=== PATIENT | female | born 1965 | race Caucasian/White ===

== ENCOUNTER 2020-11-22 06:46 | Observation (INO) ==
--- NOTE | 2020-11-02 09:47 | PAT Medication Instructions ---
Medication Instructions Date of Service November 02, 2020 Home Medications Medication Instructions Recorded Wheeled Walker #1 ea 10/19/20 Vitamin D 1 tab PO QAM ascorbic acid (vitamin C) [Vitamin C] 1 g PO BID calcium-magnesium [Calcium And Magnesium] 2 tab PO BID multivitamin 1 tab PO QAM naproxen sodium [Aleve] 440 mg PO BID PRN ASK your surgeon for instructions naproxen sodium [Aleve] 440 mg PO BID PRN DO NOT take the morning of surgery Vitamin D 1 tab PO QAM ascorbic acid (vitamin C) [Vitamin C] 1 g PO BID calcium-magnesium [Calcium And Magnesium] 2 tab PO BID multivitamin 1 tab PO QAM Other Notes If you have any questions please call us at [phone] or [phone] or [phone] or [phone]
--- NOTE | 2020-11-06 10:12 | Anesthesiology Consultation ---
Date of Service November 06, 2020 Assessment & Plan (1) Encounter for pre-operative examination: - Per assessment on 11/06: Travel screen- Lives in [place]. Works in [employer]. No known COVID-19 positive contacts or current COVID-19 related symp toms. Surgeon arranging preop COVID testing. Awaiting results. - Check test AM DOS - Hx PONV: Patient had had severe PONV with multiple previous surgeries. Will order scope patch for AM DOS. Chart Review Chart Review: Acceptable Risk for Surgery and Patient seen in Pre Admission Testing Teaching & Discussion Pre-Anesthesia Teaching/Discussion Notes: Instructed NPO after midnight before surgery,except medications with 15 cc of water. Medication instructions provided according to the PAT guidelines. History Surgery Operation Date: 11/22/20 09:05 Proposed Procedures p Left Total Knee Arthroplasty - Wayne Acuna MD Height/Weight Height: 5 ft 7 in Weight: 78.8 kg Allergies Allergy/AdvReac Type Severity Reaction Status Date / Time Bactrim Allergy Intermediate rash Verified 09/23/13 10:22 sulfamethoxazole Allergy Intermediate rash Verified 10/24/20 13:42 trimethoprim Allergy Intermediate rash Verified 10/24/20 13:42 Sulfa (Sulfonamide Allergy Mild rash Verified 11/02/20 13:49 Antibiotics) Medications Home Medications Medication Instructions Recorded Confirmed Last Taken Wheeled Walker #1 ea 10/19/20 10/19/20 Unknown Vitamin D 1 tab PO QAM 10/24/20 10/24/20 Unknown ascorbic acid (vitamin C) [Vitamin 1 g PO BID 10/24/20 10/24/20 Unknown C] calcium-magnesium [Calcium And 2 tab PO BID 10/24/20 10/24/20 Unknown Magnesium] multivitamin 1 tab PO QAM 10/24/20 10/24/20 Unknown naproxen sodium [Aleve] 440 mg PO BID PRN 10/24/20 10/24/20 Unknown 5-HTP 1 tab PO QPM 11/06/20 11/06/20 Unknown Allergy Relief Medicine 180 mg PO DAILY 11/06/20 11/06/20 Unknown B [place] 1 tab PO BID 11/06/20 Unknown Curcumin 1 tab PO QAM 11/06/20 11/06/20 Unknown DL-Phenylalanine DAILY 11/06/20 Unknown K+2 Potassium 1 tab PO BID 11/06/20 Unknown Liposomal/Vit D [place] 1 pump TID 11/06/20 Unknown Metabolic Synergy (Multi) 1 tab PO BID 11/06/20 Unknown P5p DAILY 11/06/20 Unknown Probiotic 1 tab PO QPM 11/06/20 11/06/20 Unknown Vitamin C 600 mg PO BID 11/06/20 11/06/20 Unknown iodine BID 11/06/20 Unknown krill oil 1 tab PO QAM 11/06/20 11/06/20 Unknown melatonin 3 mg PO HS 11/06/20 11/06/20 Unknown tyrosine [L-Tyrosine] 500 mg PO QAM 11/06/20 11/06/20 Unknown Past Medical History Medical History CMC arthritis DJD (degenerative joint disease) GERD (gastroesophageal reflux disease) occasional Exercise / Class Metabolic Activity II 4-5 Yardwork/Stairs/Walk up hill Past Family History Family History Grandmother Heart disease Mother Diabetes Uncle Family hx of colon cancer Other Depression Past Surgical History Surgical History H/O hand surgery Left thumb History of endometrial ablation Status post right partial knee replacement Past Anesthesia History No Hx of Anesthesia Complications (except PONV) and No Family Hx of Anesthesia Complications History of PONV History of PONV (severe PONV/multiple times, improved with right partial knee replacement (+ nausea but no vomiting)) and Hx of Motion Sickness Social History Smoking Status: Former smoker Do You Dip or Chew Tobacco: No Smoking End Date: Quit 20+ years ago Hx Alcohol Use: Yes Alcohol type: beer and wine alcohol intake frequency: a few times a week Hx Substance Use: Yes substance use type: marijuana Substance Use Type Other:: Medical marijuana vapes HS/occ daytime PRN pills (for arthritis pain) Review of Systems Rare, intertmittent palpitations (mostly associated with stress). Patient denies chest pain, shortness of breath, dyspnea on exertion, fever, chills, cough, wheezing. Physical Exam Vital Signs VITALS BP 148/85 P 73 TEMP 98.5 SP02 96%RA RESP 16 PHYSICAL Full neck and c-spine range of motion. Full TMJ range of motion. TMD 3 finger breaths Mallampati Score 2 Dentition: intact, + several caps, temporary upper front cap/left sided lower molar, + Invisalign (can be removed but not easily per patient)- patient advised recommendation to remove AM DOS/discuss with anesthesiologist further if unable to do so* Lungs: clear throughout to auscultation Cardiac: regular rate and rhythm, no murmurs noted Spine: normal Carotid arteries: negative bruit Extremities: no edema Testing Laboratory Results 11/06/20 10:26 11/06/20 10: PT 10.7 Seconds (9.0-12.0) 11/06/20 10: INR 1.0 (0.9-1.1) 11/06/20 10: APTT 29.2 Seconds (21.0-31.0) 11/06/20 10:26 Blood Type B Positive 11/06/20 10:26 Antibody Screen NEGATIVE 11/06/20 10:26 Electrocardiogram Date: 11/06/20 Findings: + NSR @ (67) Chest X-Ray Date: 11/06/20 FINDINGS: PA and lateral chest radiographs are compared to study dated 09/20/2013. The cardiomediastinal silhouette is unremarkable. The lungs and pleural spaces are clear. There is no pneumothorax. The bony thorax appears intact. IMPRESSION: No active disease in the chest.
--- NOTE | 2020-11-06 10:51 | XRay Report ---
TWO VIEW CHEST CLINICAL HISTORY: Preoperative examination. FINDINGS: PA and lateral chest radiographs are compared to study dated 09/20/2013. The cardiomediastin al silhouette is unremarkable. The lungs and pleural spaces are clear. There is no pneumothorax. The bony thorax appears intact. IMPRESSION: No active disease in the chest. ACT 112: Negative or not required by law. Electronically signed by: Harinder Mckeon M.D. 11/06/2020 10:50 AM
[2020-11-06 11:30] LABS: Basophils # (auto) 0.03 K/uL (0-0.2); Basophils % (auto) 0.6 %; Eosinophils # (auto) 0.08 K/uL (0-0.5); Eosinophils % (auto) 1.7 %; Hematocrit (blood only) 43.4 % (37-47); Hemoglobin 14.6 g/dL (12.0-16.0); Immature Granulocytes # (auto) 0.01 K/uL (0.00-0.02); Immature Granulocytes % (auto) 0.2 %; Lymphocytes # (auto) 1.83 K/uL (1.2-3.4); Mean Corpuscular Hemoglobin 30.4 pg (25-34); Mean Corpuscular Hgb Conc 33.6 g/dL (32-36); Mean Corpuscular Volume 90.2 fL (80-100); Mean Platelet Volume 10.7 fL (7.4-10.4); Monocytes # (auto) 0.46 K/uL (0.11-0.59); Monocytes % (auto) 9.5 %; Neutrophils # (auto) 2.41 K/uL (1.4-6.5); Platelet Count 303 K/uL (130-400); RDW Coefficient of Variation 13.5 % (11.5-14.5); RDW Standard Deviation 44.5 fL (36.4-46.3); Red Blood Count 4.81 M/uL (4.2-5.4); White Blood Count 4.82 K/uL (4.8-10.8)
--- NOTE | 2020-11-06 11:38 | Electrocardiogram Report ---
Test Reason : Blood Pressure : / mmHG Vent. Rate : 067 BPM Atrial Rate : 067 BPM P-R Int : 156 ms QRS Dur : 096 ms QT Int : 438 ms P-R-T Axes : 006 063 056 degrees QTc Int : 462 ms Normal sinus rhythm Normal ECG When compared with ECG of 20-SEP-2013 13:45, No significant change was found Confirmed by Jordon Ardon ([id number]) on 11/06/2020 11:38:03 AM Referred By: Wayne Acuna Confirmed By:Thiago Ardon
[2020-11-06 11:40] LABS: BUN Creatinine Ratio 15.9 (10-20); Blood Urea Nitrogen 12 mg/dl (7-18); C Reactive Protein < 0.29 mg/dl (0-0.29); Carbon Dioxide 29 mmol/L (21-32); Chloride 104 mmol/L (98-107); Creatinine Clr Calc Pharmacy 89.1 ml/min; Est GFR (African American) 99.9; Est GFR (Non-African American) 86.2; Glucose 81 mg/dl (70-99); Potassium 4.6 mmol/L (3.5-5.1); Sodium 139 mmol/L (136-145)
[2020-11-06 11:41] LABS: Partial Thromboplastin Time 29.2 Seconds (21.0-31.0); Prothrombin Time 10.7 Seconds (9.0-12.0)
--- NOTE | 2020-11-18 11:27 | History and Physical Report ---
DATE OF ADMISSION: 11/22/2020 CHIEF COMPLAINT: Left knee pain. HISTORY OF PRESENT ILLNESS: The patient is a 55-year-old female well known to me from a previous right partial knee replacement done 7 years ago. Over the years, she has developed increased pain and discomfort in her left knee. She has been through conservative care including medicines and injections, which have become less successful over time. She is pretty miserable at this point. By the time she gets to midday, she has got quite a bit of pain and having trouble walking. She limps more as the day goes on. Pain is mostly medial, but some global pain. She has nighttime discomfort. She has difficulty going up and down steps. She would like to have her left knee replaced. PAST MEDICAL HISTORY: 1. Irregular heartbeat/palpitations. 2. Hand arthritis. 3. Mild obesity with a BMI of 28. 4. Gastroesophageal reflux disease. 5. Back pain. PAST SURGICAL HISTORY: Include: 1. Right partial knee replacement done 09/23/2013. 2. Unspecified ablation. 3. Left thumb EPL repair. ALLERGIES: BACTRIM. CURRENT MEDICATIONS: Include: 1. Medical marijuana. 2. Supplements. 3. Vitamins. SOCIAL HISTORY: A 55-year-old female. Does not smoke. She drinks 10 drinks per week. FAMILY HISTORY: Noncontributory. REVIEW OF HISTORY: Negative for diabetes, neurologic problem, vascular problems or bleeding disorders. No history of DVT or PE. No chest pain or shortness of breath. PHYSICAL EXAMINATION: GENERAL: Shows a pleasant, middle-aged female. Looks to be in reasonably good health. HEENT: Benign. NECK: Supple, no lymphadenopathy. LUNGS: Clear to auscultation. HEART: Has a regular rate and rhythm. ABDOMEN: Soft, nontender, nondistended. EXTREMITIES: Grossly neurovascularly intact except as follows. Examination of the knee reveals the patient walks with a bit of an antalgic gait. She keeps her knee kind of stiff when she walks. She has got varus alignment to her knee. Small knee effusion. She is tender both medially and laterally. Range of motion is near full extension to 120 degrees of flexion. There is no instability. No pain with hip motion. X-RAYS: X-rays of the left knee reviewed. It shows advanced left knee DJD. She has got complete loss of medial joint space. She has got osteophytes off the medial femoral condyle and medial tibial plateau. Lateral joint space is pretty well preserved, but does have some osteophytes. ASSESSMENT: A 55-year-old female, 7 years out from a right partial knee replacement with advanced left knee degenerative joint disease. She has failed conservative measures and would like to have her left knee replaced. PLAN: We are going to proceed with left total knee replacement. I think her disease is too advanced for partial knee replacement similar to the opposite side. The risks and benefits of left total knee replacement were explained to the patient including but not limited to DVT, PE, , infection, neurological injury, vascular injury, bleeding problem, pain, limited range of motion, stiffness, failure to relieve her symptoms, incomplete relief of symptoms, need for further surgery in future, fracture, leg length inequality, nerve palsy, and need for revision surgery. The patient is fully aware of her young age, this may need to be redone in the future. She would like to proceed. As far as discharge plans, she is planning to be discharged to home using [facility] home health program.
[~2020-11-22 06:46] MED LIST: ACETAMINOPHEN 500 MG TAB PO SCH; BUPIVACAINE 0.5 % 5 MG/1 ML PF 10ML VIAL ONE; BUPIVACAINE LIPOSOME/PF 266 MG, BUPIVACAINE/EPINEPHRINE 50 ML, SODIUM CHLORIDE 0.9% 30 ... INFIL SCH; EPINEPHrine INJ 1 MG/ML AMP ONE; FAMOTIDINE 20 MG TAB PO SCH; GABAPENTIN 900 MG DOSE PO SCH; LR 500ML BOLUS, THEN 15ML/HR IV SCH; LR 60ML/HR IV SCH; METOCLOPRAMIDE HCL 10 MG TABLET PO SCH; ROPIVACAINE 0.5% 5 MG/ML 30 ML VIAL ONE; TRANEXAMIC ACID 1,000 MG **IV Intra-op IV SCH; ceFAZolin 2000MG 2,000 MG/15 ML SYR IV SCH
--- NOTE | 2020-11-22 06:48 | History & Physical Bridge Note ---
Date of Service November 22, 2020 History & Physical Bridge Note I have examined the patient, reviewed the History & Physical and in the interval since the performance of the History & Physical I have noted the following changes of clinical significance: no changes noted
[2020-11-22] MEDS ORDERED: fentaNYL citrate 100 MCG/2 ML VIAL IV PRN (07:13)
[2020-11-22] MEDS ORDERED: HYDROmorphone INJ 1 MG/ML SYRINGE IV PRN (07:13)
[2020-11-22] MEDS ORDERED: MEPERIDINE HCL 25 MG/ML CARP/VIAL IV PRN (07:13)
[2020-11-22] MEDS ORDERED: ePHEDrine sulfate 50 MG/ML AMP IV PRN (07:13)
[2020-11-22] MEDS ORDERED: ONDANSETRON INJ 2 MG/ML 2 ML VIAL IV PRN ×2 (07:13→12:00)
[2020-11-22] MEDS ORDERED: LABETALOL HCL IV 5 MG/ML 20ML IV PRN (07:13)
[2020-11-22] MEDS ORDERED: ATROPINE SULFATE 0.1 MG/ML 10ML SYR IV PRN (07:13)
[2020-11-22] MEDS ORDERED: PHENYLEPHRINE 100MCG/ML 5ML SYR IV PRN (07:13)
[2020-11-22] MEDS ORDERED: LIDOCAINE HCL 2% 2 ML VIAL/AMP(20MG/ML) INFIL ONE (08:26)
[2020-11-22] MEDS ORDERED: PROPOFOL IV EMULSION 10 MG/ML 20 ML VIAL IV ONE (08:26)
[2020-11-22] MEDS ORDERED: MIDAZOLAM HCL 1 MG/ML 2ML VIAL ONE (08:26)
[2020-11-22] MEDS ORDERED: BACITRACIN INJ 50,000 UNIT VIAL ONE (09:16)
[2020-11-22] MEDS ORDERED: BUPIVACAINE LIPOSOME 1.3% 266 MG/20 ML VIAL ONE ×2 (09:17→09:37)
[2020-11-22] MEDS ORDERED: BUPIVACAINE 0.25% 30 ML VIAL ONE (09:18)
[2020-11-22] MEDS ORDERED: EPINEPHrine INJ 1 MG/ML AMP ONE (09:21)
[2020-11-22] MEDS ORDERED: SODIUM CHLORIDE 0.9% PF 50 ML VIAL ONE (09:21)
--- NOTE | 2020-11-22 11:01 | Post Operative Brief Note ---
PG Immediate Post Op with CF Date of Surgery November 22, 2020 Pre & Post Diagnosis Operation Date: 11/22/20 08:50 Pre-Op Diagnosis: Left Knee Advanced Degenerative Joint Disease Post-Op Diagnosis: Left Knee Advanced Degenerative Joint Disease I identified the patient and participated in the time-out.: Yes Procedure Operation Date: 11/22/20 08:50 Actual Procedures p Left Total Knee Arthroplasty(Left) - Wayne Acuna MD Surgeon Wayne Acuna MD Instant Printer Operator AMANDA Pérez Estimated Blood Loss 50 Findings Consistent with Post-Op Diagnosis Fluids 1400 cc. Specimens Specimen Description: A. Left Knee Bone and Tissue Drains Brink Catheter Anesthesia Type Spinal MAC Complications none Disposition Disposition: Recovery Room
--- NOTE | 2020-11-22 11:17 | Anesthesiology Progress Note ---
Date of Service November 22, 2020 Anesthesia Post Procedure Vital Signs Vital Signs: Temp Pulse Pulse Resp BP Pulse Ox 11/22/20 11:10 68 16 105/59 L 100 11/22/20 11:03 36.8 C 81 16 113/65 100 11/22/20 07:13 36.8 C 85 16 134/91 97 Pain Intensity Left Knee: Pain Intensity: 0 Transfer of Care Handoff Completed per policy Notes Mental Status: alert / awake / arousable Patient Amnestic to Procedure: Yes Nausea / Vomiting: adequately controlled Pain: adequately controlled Airway Patency, RR, SpO2: stable & adequate BP & HR: stable & adequate Hydration State: stable & adequate Neuraxial Anesthesia: was administered and sensory block is resolving Anesthetic Complications: no major complications apparent and Pt Satisfied with anesthetic care
--- NOTE | 2020-11-22 11:29 | XRay Report ---
XR knee LT 1 or 2V routine CLINICAL HISTORY: Surgical Post Op COMPARISON: Outside study dated 10/19/2020 DISCUSSION: There are postsurgical changes of a total left knee arthroplasty and patellar resurfacing .. The femoral tibial components appear well seated. There is gas present within the soft tissues con sistent with recent surgery. There are overlying skin bradley. IMPRESSION: Postsurgical changes of a total left knee arthroplasty. ACT 112: Negative or not required by law. Electronically signed by: Evan Gagnon M.D. 11/22/2020 11:28 AM
[2020-11-22] MEDS ORDERED: NALOXONE HCL 0.4 MG/1 ML VIAL/CARP IV PRN (12:00)
[2020-11-22] MEDS ORDERED: ALUMINUM/MAGNESIUM SUSP 30 ML UDC PO PRN (12:00)
[2020-11-22] MEDS ORDERED: diphenhydrAMINE Capsule 25 MG CAP PO PRN (12:00)
[2020-11-22] MEDS ORDERED: MAGNESIUM HYDROXIDE SUSP 30 ML UDC PO PRN (12:00)
[2020-11-22] MEDS ORDERED: bisacodyL 10 MG SUPP PR PRN (12:00)
[2020-11-22] MEDS ORDERED: HYDROmorphone INJ 0.5 MG/0.5 ML SYR IV PRN (12:00)
[2020-11-22] MEDS ORDERED: METOCLOPRAMIDE HCL INJ 5 MG/ML 2 ML VIAL IV PRN (12:00)
[2020-11-22] MEDS: SODIUM CHLORIDE 0.9% 1000ML 1,000 ML IV SCH (13:53)
[2020-11-22] MEDS: KETOROLAC 30 MG/ML VIAL IV SCH ×3 (13:53→23:06)
[2020-11-22] MEDS: FERROUS GLUCONATE 324 MG TAB PO SCH (16:07)
[2020-11-22] MEDS: Scopolamine CHECK PATCH PLACEMENT SCH ×2 (16:07→23:06)
[2020-11-22] MEDS: ACETAMINOPHEN 500 MG TAB PO SCH ×2 (16:07→23:06)
[2020-11-22] MEDS: ASCORBIC ACID 500 MG TAB PO SCH (16:08)
--- NOTE | 2020-11-22 16:22 | Progress Notes ---
DATE: 11/22/2020 SUBJECTIVE: A 55-year-old female, postop from a left knee replacement. She is just starting to get some pain in her leg. No chest pain or shortness of breath. Not feeling dizzy or lightheaded. OBJECTIVE: VITAL SIGNS: Temperature is 36.6. Vital signs are stable. GENERAL: Shows a pleasant, middle-aged female. She is sitting up in bed, looks pretty comfortable. LUNGS: Clear to auscultation. HEART: Has a regular rate and rhythm. ABDOMEN: Soft, nontender, nondistended. EXTREMITIES: Grossly neurovascularly intact except as follows: Examination of the left lower extremity reveals the leg to be well aligned. She can dorsiflex and plantarflex her foot appropriately. She has got brisk refill and good distal pulse. Sensory exam is intact to light touch. No drainage on her dressing. X-RAYS: X-rays of the left knee from recovery room are reviewed. It shows left cemented posterior stabilized total knee arthroplasty. Components looked to be in good position. No signs of problems. ASSESSMENT: A 55-year-old female postoperative from left knee replacement, doing well. Just starting to get some pain in her leg. She is neurologically intact. PLAN: 1. DVT prophylaxis including thigh-high TEDs, SCDs, and aspirin twice a day. 2. PT/OT. Weight bear as tolerated. Left total knee protocol. 3. Pain control, doing well with current pain regimen. 4. IV antibiotics x24 hours. 5. Disposition: Plan to discharge to home with some home health once adequately recovered and medically stable.
[2020-11-22] MEDS ORDERED: TRANEXAMIC ACID / 0.7% NACL 1,000 MG/100 ML BAG IV SCH (17:30)
--- NOTE | 2020-11-22 17:52 | Operative Report ---
Post Operative Report Pre & Post Diagnosis Operation Date: 11/22/20 08:50 Pre-Op Diagnosis: Left Knee Advanced Degenerative Joint Disease Post-Op Diagnosis: Left Knee Advanced Degenerative Joint Disease I identified the patient and participated in the time-out.: Yes Procedure Operation Date: 11/22/20 08:50 Actual Procedures p Left Total Knee Arthroplasty(Left) - Wayne Acuna MD Surgeon Wayne Acuna MD Hospital Superintendent AMANDA Pérez Estimated Blood Loss 50 Findings Consistent with Post-Op Diagnosis Operative findings revealed advanced left knee DJD. She had extensive grade 4 [id number] disease and eburnation of the entire medial compartment. Her lateral patellofemoral compartments were fairly well-preserved. She did have a fixed varus deformity to her knee and a slight flexion contracture. Fluids 1400 cc. Specimens Left knee sent for pathology. Drains None Anesthesia Type Spinal MAC Complications none Disposition Disposition: Recovery Room Indications Patient is a 55-year-old female is had a several year history of increasing left knee pain discomfort unresponsive conservative care. She did have a partial knee replacement done about 7 years ago and done well from this. The left knee showed advanced DJD with some suggestion of the disease in the other compartments. She had a second flexion contracture and varus deformity to her knee and was indicated for total knee arthroplasty. She failed all conservative measures. Description of Procedure Operative implants consisted of: 1. Biomet Vanguard size 65 left posterior stabilized femoral component. 2. Biomet size 75 tibial tray. 3. 10 mm posterior stabilized polyethylene insert. 4. 31 x 8 all polypatella. The patient was taken to the operating identified and placed on the operating table supine position but all contact areas were properly padded. IV antibiotics tried by anesthesia team. A spinal anesthetic and abductor canal block had been brought in holding area. Brink catheter was placed in sterile fashion. A left thigh turn was then placed in the left lower extremity was then prepped and draped in usual sterile fashion. The left leg was elevated exsanguinated with use of an Esmarch interspace at 300 mmHg. An anterior approach to the left knee was then performed to longitudinal incision centered over the patella. Sharp dissection was got through subcutaneous tissue down to the extensor mechanism. A medial parapatellar arthrotomy incision was made. Some subperiosteal dissection was carried out medially but the fat pad was resected from each patella tendon. Lateral patellofemoral ligament was released. Patella was subluxated laterally and the knee was flexed. The osteophytes were taken off the distal femur. The ACL and PCL were then released in the distal femur and the tibia subluxated anteriorly. The external tibial alignment jig was then placed in the interface the tibia and adjusted 14 mm medially. Proximal tibial cut was made remove about 2 mm of bone from most efficient aspect medial till plateau. Some osteophytes taken off medial and posterior medially. The tibia size a size 75. Attention drawn the femur. The distal femur then with a sharp drop with intramedullary canal was suction. A left 5 degree valgus cutting guide was placed. The distal femoral cutting block was pinned in place. The distal femoral cut was made to take an additional 3 mm of bone off distal femur. The femur was then sized to a size 65. The AP cutting block was pinned parallel to the epicondylar axis which was 5 degrees of external rotation. Anterior cut, anterior chamfer, posterior cut, posterior chamfer cuts were made. The box cutting guide was placed in a just slight lateral and the box cut was made for the knee was flexed. The remnants of the medial lateral menisci were excised but the osteophytes were taken off the posterior aspect the femur. A trial femoral component was placed but the tibial tray was pinned in maximum external rotation and the drill and stem punch were used to create defect in proximal to for the tibial tray. Knee was then trialed and the 10 mm insert fit most appropriately. Attention drawn the patella. Patella was cleaned of all soft tissues. Patella thickness measured 20 mm in thickness was cut down to 12. Sized to a size 31 patella. Locals were drilled for 31 patella. The lateral osteophyte is moved. Patella button was placed. Knee was taken through range of motion patella tracked nicely with no thumbs test. Attention turned to placing the permanent components. All trial components were removed. A bone plug was placed in the distal femur limit blood loss. A double batch of [place] G cement was mixed. A Biomet Vanguard size 65 left posterior stabilized femoral component, size 75 tibial tray, 10 mm posterior stabilized polyethylene insert, and a 31 x 8 all polypatella then cemented in place. Knee was brought out in full extension total cement hardened. Final cement check was then performed. The pericapsular tissues were injected with total 100 cc of combination of 20 cc of Exparel, 30 cc normal saline, 50 cc of quarter percent Marcaine with epinephrine. Patient did receive 1 g tranexamic acid but the turn was then let down for tourniquet time 53 minutes. Hemostasis assured use electrocautery. The extensor mechanism then closed with combination 1 PDS suture #1 Vicryl suture in [id number] fashion. Extensor Maxon checked found to be intact the subcutaneous tissue then closed with 2 Dexon suture in a buried interrupted fashion skin was closed skin bradley. Leg was then cleaned dried and sterile dressed with Xeroform, 4 x 4's, sterile cast padding and Christopher bandage applied. Patient then transferred to the recovery room in stable condition. Patient tolerated procedure well no complications. Lencho Pérez, my physician assistant project engineer, was present for the entire procedure. His assistance was essential and required for appropriate patient positioning, prepping and draping, surgical exposure, performing the technical details of the operation, placement the implants, closure of the wound, and placement of the sterile bandage. I attest to the content of the Intraoperative Record and any orders documented therein. Any exceptions are noted below.
[2020-11-22] MEDS: ceFAZolin 1000MG 1,000 MG/7.5 ML SYR IV SCH (18:11)
[2020-11-22] MEDS: TAPENTADOL HCL ER 50 MG TABCR PO SCH (20:11)
[2020-11-22] MEDS ORDERED: ADVANCED PROBIOTIC 1250 MG CAPSULE PO SCH (21:00)
[2020-11-22] MEDS ORDERED: NON-FORMULARY MEDICATION (Ascorbic Acid (Vitamin C) [Vitamin C] 1,000 mg Tablet) PO SCH (21:00)
[2020-11-22] MEDS ORDERED: HTP PO SCH (21:00)
[2020-11-22] MEDS ORDERED: VITAMIN C PO SCH (21:00)
[2020-11-22] MEDS ORDERED: MELATONIN 3 MG TAB PO SCH (21:00)
[2020-11-22] MEDS ORDERED: SENNA 8.6 MG TAB PO SCH (21:00)
[2020-11-22] MEDS ORDERED: NON-FORMULARY MEDICATION (Calcium-Magnesium 750-465 mg Tablet) PO SCH (21:00)
[2020-11-22] MEDS: oxyCODONE HCL IR 5 MG TAB (IMMEDIATE RELEASE) PO PRN (21:03)
[2020-11-22] MEDS: DOCUSATE SODIUM 100 MG CAP PO SCH (22:16)
[2020-11-22] MEDS: ASPIRIN 81 MG ECTAB PO SCH (22:16)
[2020-11-23] MEDS: SODIUM CHLORIDE 0.9% 1000ML 1,000 ML IV SCH (00:02)
[2020-11-23] MEDS: ceFAZolin 1000MG 1,000 MG/7.5 ML SYR IV SCH (03:13)
[2020-11-23] MEDS: KETOROLAC 30 MG/ML VIAL IV SCH (05:49)
[2020-11-23 06:24] LABS: Hematocrit (blood only) 32.6 % (37-47); Hemoglobin 11.1 g/dL (12.0-16.0); Mean Corpuscular Hemoglobin 30.2 pg (25-34); Mean Corpuscular Volume 88.8 fL (80-100); Mean Platelet Volume 10.3 fL (7.4-10.4); Platelet Count 210 K/uL (130-400); RDW Coefficient of Variation 13.6 % (11.5-14.5); RDW Standard Deviation 44.4 fL (36.4-46.3); Red Blood Count 3.67 M/uL (4.2-5.4); White Blood Count 8.74 K/uL (4.8-10.8)
[2020-11-23 07:02] LABS: BUN Creatinine Ratio 19.2 (10-20); Calcium 8.3 mg/dl (8.5-10.1); Est GFR (African American) 124.8; Est GFR (Non-African American) 107.6; Potassium 3.6 mmol/L (3.5-5.1)
[2020-11-23] MEDS ORDERED: dexAMETHasone 4 MG TAB PO SCH (08:00)
[2020-11-23] MEDS: ASPIRIN 81 MG ECTAB PO SCH (08:44)
[2020-11-23] MEDS: Scopolamine CHECK PATCH PLACEMENT SCH (08:44)
[2020-11-23] MEDS: ACETAMINOPHEN 500 MG TAB PO SCH (08:44)
[2020-11-23] MEDS: ASCORBIC ACID 500 MG TAB PO SCH (08:44)
[2020-11-23] MEDS: FERROUS GLUCONATE 324 MG TAB PO SCH (08:44)
[2020-11-23] MEDS: DOCUSATE SODIUM 100 MG CAP PO SCH (08:44)
[2020-11-23] MEDS: oxyCODONE HCL IR 5 MG TAB (IMMEDIATE RELEASE) PO PRN (08:48)
[2020-11-23] MEDS: TAPENTADOL HCL ER 50 MG TABCR PO SCH (08:48)
--- NOTE | 2020-11-23 08:54 | Progress Notes ---
DATE: 11/23/2020 SUBJECTIVE: A 55-year-old female postop day 1 from left knee replacement. Had quite a bit of pain last night, but doing better this morning after some pain meds. No chest pain or shortness of breath. Not feeling dizzy or lightheaded. OBJECTIVE: VITAL SIGNS: Temperature 36.6. Vital signs stable. GENERAL: Shows a pleasant, middle-aged female. She is sitting up in bed, looks pretty comfortable this morning. EXTREMITIES: Examination of the left leg reveals the leg to be well aligned. Dressings in place. Just a little bit of bloody drainage through the front of it. She can do a straight leg raise. She can dorsiflex and plantarflex her foot appropriately. She is neurologically intact. LABORATORY DATA: Hemoglobin 11.1. Hematocrit 32.6. Electrolytes are stable. ASSESSMENT: A 55-year-old female postop day 1 from left knee replacement. Pretty painful last night, but doing a bit better this morning. She is neurologically intact. PLAN: 1. DVT prophylaxis including thigh-high TEDs, SCDs, and aspirin twice a day. 2. PT/OT. Weight bear as tolerated. Left total knee protocol. 3. Pain control, doing okay with current pain regimen. 4. Disposition: Plan to discharge to home with some home health if she does okay in therapy today and pain is controlled.
[2020-11-23] MEDS ORDERED: MULTIVITAMIN TAB PO SCH ×2 (09:00)
[2020-11-23] MEDS ORDERED: KRILL OIL PO SCH (09:00)
[2020-11-23] MEDS ORDERED: FEXOFENADINE HCL 180 MG TAB PO SCH (09:00)
[2020-11-23] MEDS ORDERED: CURCUMIN PO SCH (09:00)
[2020-11-23] MEDS ORDERED: TYROSINE PO SCH (09:00)
[2020-11-23] MEDS ORDERED: VITAMIN D PO SCH (09:00)
--- NOTE | 2020-11-27 15:34 | Discharge Summary ---
Date of Service November 27, 2020 Discharge Data Consultations 11/22/20 12:00 Consult Case Management - Discharge Planning Routine Procedures Performed Operation Date: 11/22/20 08:50 Actual Procedures p Left Total Knee Arthroplasty(Left) - Wayne Acuna MD Hospital Course (1) Status post total left knee replacement: This patient is a 55 year old female admitted on 11/22/20 and underwent total knee arthroplasty. She tolerated the procedure well and there were no complications. Transferred to the PACU post op and later to the orthopedic floor for further care. She was given ancef for antibiotic prophylaxis. She was also given YASMEEN stockings, SCDs, and aspirin for DVT prophylaxis. Hemoglobin, hemato crit, and vital signs were monitored during her hospital stay and remained stable. Did not require any blood transfusions. There were no complications during her hospital stay. By post op day #1 the patient was tolerating a regular diet, pain was reasonably controlled with oral pain medicine, and she was participating in physical therapy. On post op day #1 the patient was discharged home and set up with home health care. She was given printed discharge instructions including prescriptions for extra strength tylenol, aspirin, and oxycodone. Continue physical therapy, weight bearing as tolerated. Continue YASMEEN stockings. Follow up approximately 2 weeks post op or sooner if there are problems or concerns. Coding Level of Care Code None Diagnoses Status post total left knee replacement Z96.652
== END 2020-11-23 11:33 | disposition home health service (06) ==
LOC: 3E 06:46 → ASU 06:46

== ENCOUNTER 2024-04-07 05:08 | Observation (INO) ==
--- NOTE | 2024-03-19 12:55 | PAT Medication Instructions ---
Medication Instructions Date of Service March 19, 2024 Home Medications Medication Instructions Recorded Wheeled Walker #1 ea 10/19/20 Wheeled Walker #1 ea 11/16/20 Wheeled Walker #1 ea 11/20/20 Medication List: calcium-magnesium 750 mg-465 mg tablet 2 tab PO BID naproxen sodium 220 mg capsule (Aleve) 440 mg PO BID PRN Pain 5-HTP 1 tab PO QPM B [place] 1 tab PO BID fexofenadine 180 mg tablet (Harmony Allergy) 180 mg PO DAILY Arthroben 1 tab PO DAILY Baxaprin 1 tab PO TID Detaine-Hcl 1 tab PO DAILY Hiftieze 1 tab PO BID MEDICATION INSTRUCTIONS: ASK your surgeon for instructions naproxen sodium 220 mg capsule (Aleve) 440 mg PO BID PRN Pain STOP taking 2 weeks before surgery 5-HTP 1 tab PO QPM B [place] 1 tab PO BID Arthroben 1 tab PO DAILY Baxaprin 1 tab PO TID Detaine-Hcl 1 tab PO DAILY Hiftieze 1 tab PO BID DO NOT take the morning of surgery fexofenadine 180 mg tablet (Harmony Allergy) 180 mg PO DAILY calcium-magnesium 750 mg-465 mg tablet 2 tab PO BID Take evening before surgery calcium-magnesium 750 mg-465 mg tablet 2 tab PO BID Other Notes Remember: NOTHING TO EAT OR DRINK AFTER MIDNIGHT If you have any questions please call us at [phone] or [phone] or [phone] or [phone]
--- NOTE | 2024-03-22 09:00 | Anesthesiology Consultation ---
Date of Service March 22, 2024 Assessment & Plan (1) Encounter for pre-operative examination: - Infectious disease screening: Per assessment on 03/22/24: No known recent infectious disease contacts or current infectious disease symptoms. - Outpatient joint assessment: Pt currently scheduled for inpatient pathway. If surgeon requests review for outpatient joint pathway, patient is an acceptable candidate for outpatient joint program from anesthesia standpoint pending surgeon's office assessment that patient is motivated, has good support and completes [facility] preop requirements. - Patient concern: Panic attack with anesthesia emergence (R/L TKA) r/t neuraxial anesthesia ("not feeling legs" properly with emergence resulting in panic attack) - Elevated AST/ALT: Preop labs done 03/22/24 note significantly elevated AST (1113) and ALT (2191). Patient states that she had been remotely told she had elevated LFTs and was seen by [facility] provider (Mo Hernandez, 10 years ago)- she states LFTs normalized with weight loss and has not been rechecked more recently to her knowledge (has not seen her PCP in last several years). Case reviewed with Dr. Ponce- indicates patient needs GI evaluation prior to surgery in regards to elevated LFTs. Patient aware. She has started holding her supplements/Tylenol/NSAIDs as of ~03/23/24 to see if any correlation/improvement in LFTs. Awaiting upcoming [facility] appt/evaluation scheduled 04/02. Chart Review Chart Review: Patient seen in Pre Admission Testing Teaching & Discussion Pre-Anesthesia Teaching/Discussion Notes: Instructed NPO after midnight before surgery,except medications with 15 cc of water. Medication instructions provided according to the PAT guidelines. History Surgery Operation Date: 04/07/24 10:35 Proposed Procedures p Right Total Hip Arthroplasty - Wayne Acuna MD Height/Weight Height: 5 ft 7 in Weight: 71.2 kg Allergies Allergy/AdvReac Type Severity Reaction Status Date / Time Bactrim Allergy Intermediate rash Verified 09/23/13 10:22 sulfamethoxazole Allergy Intermediate rash Verified 03/19/24 10:23 trimethoprim Allergy Intermediate rash Verified 03/19/24 10:23 Sulfa (Sulfonamide Allergy Mild rash Verified 03/19/24 10:23 Antibiotics) Medications Home Medications Medication Instructions Recorded Confirmed Last Taken Wheeled Walker #1 ea 10/19/20 12/19/22 Unknown calcium-magnesium 750 mg-465 mg 2 tab PO BID 10/24/20 03/19/24 11/08/20 tablet naproxen sodium 220 mg capsule 440 mg PO BID PRN Pain 10/24/20 03/19/24 11/08/20 (Aleve) 5-HTP 1 tab PO QPM 11/06/20 03/19/24 11/08/20 B [place] 1 tab PO BID 11/06/20 03/19/24 11/08/20 Wheeled Walker #1 ea 11/16/20 12/19/22 Unknown Wheeled Walker #1 ea 11/20/20 12/19/22 Unknown fexofenadine 180 mg tablet 180 mg PO DAILY 11/22/20 03/19/24 11/20/20 21:00 (Harmony Allergy) Arthoben 1 tab PO DAILY 03/19/24 03/19/24 Unknown Baxaprin 1 tab PO TID 03/19/24 03/19/24 Unknown Detaine-Hcl 1 tab PO DAILY 03/19/24 03/19/24 Unknown Hiftieze 1 tab PO BID 03/19/24 03/19/24 Unknown Past Medical History Medical History Arthritis of right hip CMC arthritis Degenerative spondylolisthesis DJD (degenerative joint disease) GERD (gastroesophageal reflux disease) occasional History of vertigo Scoliosis of lumbar region due to degenerative disease of spine in adult Seasonal allergies Trochanteric bursitis, right hip Exercise / Class Metabolic Activity II 4-5 Yardwork/Stairs/Walk up hill (one FS: No CP, no SOB) Past Family History Family History Grandmother Heart disease Mother Diabetes Uncle Family hx of colon cancer Other Depression Past Surgical History Surgical History H/O hand surgery Left thumb History of endometrial ablation History of left knee replacement Left TKA: SAB L3/4, 1 attempt + regional (11/22/20) History of postoperative nausea and vomiting Status post right partial knee replacement Past Anesthesia History Other Panic attack with anesthesia emergence (R/L TKA) r/t neuraxial anesthesia ("not feeling legs" properly with emergence resulting in panic attack) History of PONV History of PONV (Significant improvement in PONV response more recently with Left TKA 2020) and Hx of Motion Sickness Social History Smoking Status: Former smoker Do You Dip or Chew Tobacco: No Smoking End Date: Quit "many years ago" Hx Alcohol Use: Yes Alcohol type: beer and wine alcohol intake frequency: a few times a week Hx Substance Use: Yes substance use type: marijuana (Medical marijuana vapes HS (for arthritis pain)) Review of Systems Patient denies chest pain, shortness of breath, dyspnea on exertion, fever, chills, cough, wheezing, palpitations. Physical Exam Vital Signs BP 113/76 P 84 TEMP 98.3 SP02 97%RA RESP 16 Physical Full cervical extension range of motion. Full TMJ range of motion. TMD 3.5 finger breaths Mallampati Score 1 Dentition: intact, upper front bridge, upper/lower partials ("Glued in") Lungs: clear throughout to auscultation Cardiac: regular rate and rhythm, no murmurs noted Spine: normal Carotid arteries: negative bruit Extremities: no LE edema Lab Results Anesthesia Preop Results Results Anesthesia Widget: WBC 5.93 K/ul (4.8-10.8) 03/22/24 Hgb 14.3 g/dl (12.0-16.0) 03/22/24 Hct 42.2 % (37.0-47.0) 03/22/24 Plt 263 K/uL (130-400) 03/22/24 Na 142 mmol/L (136-145) 03/22/24 K 4.0 mmol/L (3.5-5.1) 03/22/24 Cl 107 mmol/L (98-107) 03/22/24 CO2 29 mmol/L (21-32) 03/22/24 BUN 17 mg/dl (6-23) 03/22/24 Creat 0.70 mg/dl (0.6-1.2) 03/22/24 Glucose Level 97 mg/dl (70-99(Fasting)) 03/22/24 PT 12.4 Seconds (9.0-12.0) H 03/22/24 PTT 27 Seconds (21-31) 03/22/24 INR 1.2 (0.9-1.1) H 03/22/24 Blood Type B Positive 03/22/24 Antibody Screen NEGATIVE 03/22/24 Testing Electrocardiogram Date: 03/22/24 Findings: + NSR @ (72) Chest X-Ray Date: 03/22/24 FINDINGS: Cardiac mediastinal silhouettes are within normal limits. No pneumothorax, pleural effusion or consolidation. Artifact overlies the left chest, likely secondary to clothing external to the patient. The bones appear grossly intact. IMPRESSION: No acute process.
[2024-04-07] MEDS: dexAMETHasone 4 MG TAB PO SCH (05:39)
[2024-04-07] MEDS: CeleBREX 200 MG CAP PO SCH (05:39)
[2024-04-07] MEDS: ACETAMINOPHEN 500 MG TAB PO SCH (05:39)
[2024-04-07] MEDS: FAMOTIDINE 20 MG TAB PO SCH (05:40)
[2024-04-07] MEDS: Scopolamine 1 MG TDSY TD SCH (05:40)
[2024-04-07] MEDS: METOCLOPRAMIDE HCL 10 MG TABLET PO SCH (05:40)
[2024-04-07] MEDS: LR 60ML/HR IV SCH (05:41)
[2024-04-07] MEDS: LR 500ML BOLUS, THEN 15ML/HR IV SCH (05:50)
[2024-04-07] MEDS ORDERED: BUPIVACAINE 0.5 % 5 MG/1 ML PF 10ML VIAL ONE (06:20)
[2024-04-07] MEDS ORDERED: MoRPHine SULFATE PF 1 MG/ML 10 ML AMP/VIAL ONE (06:39)
[2024-04-07] MEDS ORDERED: fentaNYL citrate PF 100 MCG/2 ML VIAL ONE (06:39)
[2024-04-07] MEDS ORDERED: MIDAZOLAM HCL 1 MG/ML 2ML VIAL ONE (06:39)
[2024-04-07] MEDS: TRANEXAMIC ACID 1,000 MG **IV Pre-op IV SCH (06:45)
--- NOTE | 2024-04-07 06:50 | History & Physical Bridge Note ---
Date of Service April 07, 2024 History & Physical Bridge Note I have examined the patient, reviewed the History & Physical and in the interval since the performance of the History & Physical I have noted the following changes of clinical significance: no changes noted
[2024-04-07] MEDS: ceFAZolin 2000MG 2,000 MG/15 ML SYR IV SCH (07:05)
[2024-04-07] MEDS ORDERED: PROPOFOL IV EMULSION 10 MG/ML 20 ML VIAL IV ONE ×2 (07:27→08:13)
[2024-04-07] MEDS ORDERED: ePHEDrine sulfate 50 MG/5 ML SYR ONE (07:27)
[2024-04-07] MEDS ORDERED: NALOXONE HCL 1 MG in SODIUM CHLORIDE 0.9% 1,000 ML IV PRN (07:39)
[2024-04-07] MEDS ORDERED: NALOXONE HCL 0.4 MG/1 ML VIAL/CARP IV PRN ×2 (07:39→10:00)
[2024-04-07] MEDS ORDERED: NALBUPHINE HCL 5 MG in SYRINGE 0 ML IV PRN (07:39)
[2024-04-07] MEDS ORDERED: NALOXONE HCL 0.08 MG in SYRINGE 1.8 ML IV PRN (07:39)
[2024-04-07] MEDS ORDERED: ePHEDrine sulfate 50 MG/ML AMP IV PRN (07:39)
[2024-04-07] MEDS ORDERED: LACTATED RINGER'S 500 ML IV PRN (07:39)
[2024-04-07] MEDS ORDERED: ONDANSETRON INJ 2 MG/ML 2 ML VIAL IV PRN (07:39)
[2024-04-07] MEDS ORDERED: MEPERIDINE HCL 25 MG/ML CARP/VIAL IV PRN (07:39)
[2024-04-07] MEDS ORDERED: NO NARCOTICS OR SEDATIVES SCH (07:45)
[2024-04-07] MEDS ORDERED: DC INTRASPINAL MORPHINE SCH (07:45)
[2024-04-07] MEDS: BUPIVACAINE/EPINEPHRINE 0.5% MPF 1:200,000 30 ML VIAL ONE (08:10)
--- NOTE | 2024-04-07 08:33 | Operative Report ---
PG Post Operative Report Pre & Post Diagnosis Operation Date: 04/07/24 07:00 Pre-Op Diagnosis: Right Hip Degenerative Joint Disease Post-Op Diagnosis: Right Hip Degenerative Joint Disease I identified the patient and participated in the time-out.: Yes Procedure Operation Date: 04/07/24 07:00 Actual Procedures p Right Total Hip Arthroplasty(Right) - Wayne Acuna MD Surgeon Wayne Acuna MD Meat Selector Lencho Pérez PA-C Estimated Blood Loss 100 Findings Consistent with Post-Op Diagnosis Operative findings were advanced right hip DJD. She had grade 4 [id number] disease the femoral head and acetabulum. Fairly significant hip joint effusion. Not a lot of osteophyte formation. Specimens Right femoral head sent for pathology. Anesthesia Type Spinal MAC Complications none Disposition Accompanied Patient To Recovery: No Indications Patient is a 58-year-old female who has had multiple orthopedic issues in the past including bilateral leg knee surgeries. For the past several months she has developed fairly rapidly progressive right hip pain and discomfort. X-rays show progressive hip arthritis. She like proceed with surgical treatment. Description of Procedure Operative implants consist of: 1. Biomet G7 size 52 mm acetabular shell. 2. 6.5 cancellous acetabular screws 1 of 35 mm in length and 1 of 30 mm length. 3. [place] hole educational institution president. 4. Highly cross-linked polyethylene liner with a 52 mm outer diameter, 36 mm inner diameter with a more placed inferior and posterior. 5. DePuy Corail I size 11 KLA femoral stem. 6. +5/36 mm ceramic articular ball. The patient was taken the op room, identified, and placed on the operating table in the supine position but all contractors were appropriately padded. IV antibiotics tried by anesthesia team. A spinal anesthetic and been implemented holding area. Brink catheter was placed in sterile fashion. The patient then placed in the left lateral decubitus position. An axillary roll was placed. Stulberg hip positioner was used for positioning. The right hip and leg were then prepped and draped in usual sterile fashion. A posterolateral approach to the right hip was then performed to a curvilinear incision centered over the greater trochanter. Sharp dissection was carried through subcutaneous tissue down to level the IT band gluteal fascia. The IT band gluteal fascia incised longitudinally in line with skin incision. The underlying greater bursa was excised. The piriformis and external rotators along with the posterior hip joint capsule were then released in the posterior aspect the hip was as a single layer. Great care was taken throughout the procedure to protect the sciatic nerve at all times. The hip was internally rotated and dislocated. A femoral neck osteotomy cut was made with Final Cut about 8 mm above the lesser trochanter. Femoral head was removed and sent for pathology. The femur was retracted anteriorly. Attention drawn the acetabulum. The acetabular labrum was excised. The pulmonary fat was excised. Sequential reaming the acetabular was then performed again with size 43 and progressing up to 51. I did ream some with a 52 reamer. A 52 Biomet G7 acetabular shell was then placed in about 40 degrees lateral opening and 20 degrees of anteversion. It was fixed with two 6.5 screws. A trial liner was placed. Attention drawn the femur. The proximal femur was entered with a [employer] cutter followed by canal finder. I broached beginning size 8 and progressed up to a 10. We trialed the hip and hip was fully stable but the stem was still just a little bit rotationally loose so I did broached up to a 11. I could not quite get this the whole way down to the calcar But maybe a millimeter too proud. We have trialed the hip and it was quite stable. Leg lengths appeared equal. The hip was fully stable full extension and external rotation flexion to 90 degrees internal rotation over [address] We elect to place these implants. I did elect to place a more inferior and posterior to maximize her stability in flexion. All trial implants were removed. An apex hole educational institution president was placed. Highly cross-linked polyethylene liner with a more placed inferior and posterior was placed. A size 11 KLA femoral stem was impacted in position. It was left about a millimeter or 2 of proud of the cut. A +5/36 mm ceramic articular ball was placed. Hip was located and once again found to be stable. Attention drawn toward closing. Wound was irrigated with coconuts of pulsatile lavage solution. I did inject locally with 60 cc of half percent Marcaine with epinephrine. Posterior capsule and external rotators then repaired through drill holes in the posterior trochanter with #2 Tycron suture. The IT band gluteal fascia then closed in 1 PDS suture running fashion through subcutaneous tissue then closed with 2 layers the deep layer #1 Vicryl suture and subcutaneous tissues with 2-0 Dexon suture in buried interrupted fashion. The skin was closed with skin bradley. Leg was then cleaned and dried a sterile dressing with Xeroform, 4 fours, sterile ABD pad and foam tape was applied. Patient then transferred to the recovery room in stable condition. Patient tolerated procedure well and there were no complications. Lencho Pérez, my physician assistant guest services manager, was present for the entire procedure. His assistance was essential and required for appropriate patient positioning, prepping and draping, surgical exposure, performing the technical details of the operation, placement the implants, closure of the wound, and placement of the sterile bandage. I attest to the content of the Intraoperative Record and any orders documented therein. Any exceptions are noted below.
--- NOTE | 2024-04-07 09:03 | Anesthesiology Progress Note ---
Date of Service April 07, 2024 Anesthesia Post Procedure Vital Signs Vital Signs: Temp Pulse Pulse Resp BP Pulse Ox O2 Del Method 04/07/24 08:50 63 13 106/73 99 Room Air 04/07/24 08:40 79 19 113/70 100 Room Air 04/07/24 08:30 76 19 106/63 100 Room Air 04/07/24 08:24 97.3 F L 83 20 106/65 99 Oxymask 04/07/24 05:29 97.7 F 66 20 131/75 98 Room Air O2 Flow Rate 04/07/24 08:50 04/07/24 08:40 04/07/24 08:30 04/07/24 08:24 6 04/07/24 05:29 Pain Intensity Right Hip: Pain Intensity: 3 Transfer of Care Handoff Completed per policy Notes Mental Status: alert / awake / arousable and participated in evaluation Patient Amnestic to Procedure: Yes Nausea / Vomiting: adequately controlled Pain: adequately controlled Airway Patency, RR, SpO2: stable & adequate BP & HR: stable & adequate Hydration State: stable & adequate Neuraxial Anesthesia: was administered and sensory block is resolving Anesthetic Complications: no major complications apparent and Pt Satisfied with anesthetic care
[2024-04-07] MEDS ORDERED: MAGNESIUM HYDROXIDE SUSP 30 ML UDC PO PRN (10:00)
[2024-04-07] MEDS ORDERED: NON-FORMULARY MEDICATION (Calcium-Magnesium 750-465 mg Tablet) PO SCH (10:00)
[2024-04-07] MEDS ORDERED: bisacodyL 10 MG SUPP PR PRN (10:00)
[2024-04-07] MEDS ORDERED: SENNA 8.6 MG TAB PO SCH (10:00)
[2024-04-07] MEDS ORDERED: ALUMINUM/MAGNESIUM SUSP 30 ML UDC PO PRN (10:00)
[2024-04-07] MEDS: MoRPHine SULFATE PF 1 MG/ML 10 ML AMP/VIAL INT SPINAL ONE (10:22)
[2024-04-07] MEDS: SODIUM CHLORIDE 0.9% 1,000 ML IV SCH ×2 (10:22→11:01)
[2024-04-07] MEDS: DOCUSATE SODIUM 100 MG CAP PO SCH (11:00)
[2024-04-07] MEDS: FEXOFENADINE HCL 180 MG TAB PO SCH (11:00)
[2024-04-07] MEDS: MULTIVITAMIN TAB PO SCH (11:01)
[2024-04-07] MEDS: ASPIRIN 81 MG ECTAB PO SCH (11:01)
[2024-04-07] MEDS: diphenhydrAMINE 50 MG/ML VIAL IV PRN (12:33)
[2024-04-07] MEDS: TRANEXAMIC ACID / 0.7% NACL 1,000 MG/100 ML BAG IV SCH (14:34)
[2024-04-07] MEDS: ceFAZolin 1000MG 1,000 MG/7.5 ML SYR IV SCH (14:34)
[2024-04-07] MEDS: Scopolamine CHECK PATCH PLACEMENT SCH (15:26)
[2024-04-07] MEDS: KETOROLAC 30 MG/ML VIAL IV SCH (17:22)
[2024-04-07] MEDS: ASCORBIC ACID 500 MG TAB PO SCH (17:22)
--- NOTE | 2024-04-07 17:45 | XRay Report ---
XR hip 1V RT w pelvis CLINICAL HISTORY: IN PACU - Post Surgical TECHNIQUE: 1 view of the right hip and single frontal view of the pelvis were obtained. Comparison: Comparison is made to hip radiograph 02/20/2024 FINDINGS: Patient is status post total hip arthroplasty with expected postsurgical changes including soft tissu e swelling and subcutaneous emphysema. IMPRESSION: Expected postoperative appearance status post placement of total hip arthroplasty. ACT 112: Negative or not required by law. Electronically signed by: Dat Hope M.D. 04/07/2024 5:43 PM
[2024-04-07] MEDS: CALCIUM CARBONATE 1250MG TAB PO SCH (20:04)
[2024-04-07] MEDS: SENNA 8.6 MG TAB PO SCH (20:04)
[2024-04-07] MEDS: MAGNESIUM OXIDE 400 MG TAB PO SCH (20:04)
[2024-04-07] MEDS ORDERED: HTP PO SCH (21:00)
[2024-04-08] MEDS ORDERED: diphenhydrAMINE Capsule 25 MG CAP PO PRN (01:40)
[2024-04-08] MEDS ORDERED: METOCLOPRAMIDE HCL INJ 5 MG/ML 2 ML VIAL IV PRN (01:40)
[2024-04-08] MEDS ORDERED: HYDROmorphone INJ 0.5 MG/0.5 ML SYR IV PRN (01:40)
[2024-04-08] MEDS ORDERED: ONDANSETRON INJ 2 MG/ML 2 ML VIAL IV PRN (01:40)
[2024-04-08] MEDS: traMADol HCL 50 MG TABLET PO PRN (02:54)
[2024-04-08 06:13] LABS: Basophils # (auto) 0.03 K/uL (0.00-0.20); Basophils % (auto) 0.3 %; Eosinophils # (auto) 0.04 K/uL (0.00-0.50); Eosinophils % (auto) 0.4 %; Hematocrit (blood only) 25.8 % (37.0-47.0); Hemoglobin 8.7 g/dl (12.0-16.0); Immature Granulocytes # (auto) 0.08 K/uL (0.01-0.20); Immature Granulocytes % (auto) 0.8 %; Lymphocytes # (auto) 1.77 K/uL (1.20-3.40); Lymphocytes % (auto) 17.6 %; Mean Corpuscular Hemoglobin 30.3 pg (25.0-34.0); Mean Corpuscular Hgb Conc 33.7 g/dL (32.0-36.0); Mean Corpuscular Volume 89.9 fL (80.0-100.0); Mean Platelet Volume 10.3 fL (9.4-12.4); Monocytes # (auto) 0.94 K/uL (0.11-0.59); Monocytes % (auto) 9.3 %; Neutrophils # (auto) 7.21 K/uL (1.40-6.50); Neutrophils % (auto) 71.6 %; Platelet Count 156 K/uL (130-400); RDW Coefficient of Variation 13.5 % (11.5-14.5); RDW Standard Deviation 44.4 fL (36.4-46.3); Red Blood Count 2.87 M/uL (4.20-5.40); White Blood Count 10.07 K/ul (4.8-10.8)
[2024-04-08 06:32] LABS: BUN Creatinine Ratio 17.7 (10-20); Calcium 8.3 mg/dl (8.6-10.3); Creatinine Clr Calc Pharmacy 97.4 ml/min; Est GFR (Non-African American) 100.1 ml/min; Potassium 3.7 mmol/L (3.5-5.1)
[2024-04-08] MEDS: dexAMETHasone 10 MG in SYRINGE 0 ML IV SCH (08:36)
--- NOTE | 2024-04-08 13:40 | Orthopedic Progress Note ---
Date of Service April 08, 2024 Assessment & Plan (1) Status post right hip replacement: Plan: 58-year-old female postop day 1 from right total hip replacement. She is doing well. Pains controlled. Hips located. She is neurologically intact. She is slightly anemic but without symptoms. Plan: 1. DVT prophylaxis including thigh-high teds, SCDs, aspirin twice a day. 2. PT/OT. Weight-bear as tolerated right total hip protocol. 3. Pain control doing well with current pain regimen. 4 disposition plan to discharge to home with some home health today. Admission and Anticipated Discharge Date Admission Date: April 07, 2024 Subjective 58-year-old female postop day 1 from right total hip placement. She is doing well. She is getting along pretty well. Pains controlled. No chest pain or shortness of breath. Not feeling dizzy or lightheaded. Physical Exam Physical Exam: Physical nation is a pleasant middle-age female. She was walking in the hallways with a therapist when I visited her today. Examination of the right hip and leg reveals dressing be clean dry and intact. Thigh is soft and supple. Leg lengths are equal. Hips located. She is neurologically intact. Respiratory: normal respiratory effort, lungs clear to auscultation Cardiovascular: RRR, no murmur, no edema Gastrointestinal (Abdomen): normal bowel sounds, soft, nontender, no hepatosplenomegaly Results & Data Vital Signs (Past 12 Hours) Vital Signs Temp Pulse Resp BP Pulse Ox O2 Del Method 04/08/24 10:55 36.7 C 58 L 16 118/74 98 04/08/24 07:49 36.7 C 58 L 16 118/74 98 Room Air 04/08/24 04:51 60 108/60 04/08/24 03:42 36.9 C 60 18 96/60 L 99 Room Air Laboratory Results Hemoglobin is 8.7. Hematocrit is 25.8. Electrolytes are stable.
--- NOTE | 2024-04-13 11:39 | Discharge Summary ---
Date of Service April 13, 2024 Discharge Data Procedures Performed Operation Date: 04/07/24 07:00 Actual Procedures p Right Total Hip Arthroplasty(Right) - Wayne Acuna MD Hospital Course (1) Status post right hip replacement: This is a 58 year old patient admitted on 04/07/24 and underwent total hip arthroplasty. She tolerated the procedure well and there were no complications. Transferred to the PACU post op and later to the orthopedic floor for further care. She was given ancef for antibiotic prophylaxis. She was also given YASMEEN stockings, SCDs, and aspirin for DVT prophylaxis. Hemoglobin, hematocrit, and vital signs were monitored during her hospital stay and remained stable. Did not require any blood transfusions. There were no complications during her hospital stay. By post op day #1 the patient was tolerating a regular diet, pain was reasonably controlled with oral pain medicine, and she was participating in physical therapy. On post op day #1 the patient was discharged home and set up with home health care. She was given printed discharge instructions including prescriptions for extra strength tylenol, aspirin, ketorolac, zofran, senokot, and tramadol. Continue hip precautions. Continue physical therapy, weight bearing as tolerated. Continue YASMEEN stockings. Follow up approximately 2 weeks post op or sooner if there are problems or concerns. Coding Level of Care Code None Diagnoses Status post right hip replacement Z96.641
== END 2024-04-08 11:25 | disposition home health service (06) ==
LOC: 3E 05:08 → ASU 05:08
DX: M16.11 Unilateral primary osteoarthritis, right hip; M70.61 Trochanteric bursitis, right hip; Z79.899 Other long term (current) drug therapy; Z88.2 Allergy status to sulfonamides; K21.9 Gastro-esophageal reflux disease without esophagitis; Z79.82 Long term (current) use of aspirin; Z87.891 Personal history of nicotine dependence; Z96.653 Presence of artificial knee joint, bilateral